=== PATIENT | female | born 1980 | race Caucasian/White ===

== ENCOUNTER 2022-03-28 10:31 | Emergency (ER) | payer BC ==
[~2022-03-28] VITALS: Ht 149.9 cm; Wt 52.2 kg
[2022-03-28 11:13] VITALS: BP_SYST 132
[2022-03-28 11:54] LABS: BASOPHILS # (AUTO) 0.1 K/uL (0.0-0.2); BASOPHILS % (AUTO) 0.3 % (0.0-2.0); EOSINOPHILS % (AUTO) 0.1 % (0.0-4.0); HEMATOCRIT 42.4 % (36-48); LYMPHOCYTES # (AUTO) 1.1 K/uL (1.0-5.5); LYMPHOCYTES % (AUTO) 4.6 % (20.5-51.5); MEAN CORPUSCULAR VOLUME 91 fL (79.0-98.0); MONOCYTES % (AUTO) 8.4 % (1.7-9.3); NEUTROPHILS # (AUTO) 20.7 K/uL (1.8-7.7); NEUTROPHILS % (AUTO) 86.6 % (40.0-70.0); PLATELET COUNT (AUTO) 312 K/uL (130-430); RED BLOOD CELL COUNT(AUTO) 4.68 MIL/uL (4.2-6.2); RED CELL DISTRIBUTION WIDTH 12.9 % (9.0-15.0); WHITE BLOOD COUNT (AUTO) 23.9 K/uL (4.8-10.8)
[2022-03-28 11:55] LABS: BILIRUBIN,URINE NEGATIVE (NEGATIVE); BLOOD, URINE 3+ (NEGATIVE); CLARITY/URINE SL CLOUDY (CLEAR); COLOR,URINE YELLOW (YELLOW); GLUCOSE,URINE NEGATIVE (NEGATIVE); KETONES,URINE 3+ (NEGATIVE); LEUKOCYTE ESTERASE ,URINE TRACE (NEGATIVE); NITRITE, URINE NEGATIVE (NEGATIVE); PROTEIN URINE 2+ (NEGATIVE)
--- NOTE | 2022-03-28 12:00 | NUR ---
Patient triaged and placed in waiting room. VSS and patient appears in no acute distress at this time. Accompanied by , awaiting available bed, and MD notified of need for MSE.
--- NOTE | 2022-03-28 12:05 | NUR ---
Pt brought by self, A&Ox4,pt presents to ER with upper abdominal pain and nausea x 5 days, pt afebrile, skin pink and warm, cap refill <3, will cont to monitor.
[2022-03-28 12:19] LABS: BACTERIA,URINE FEW /HPF (None Seen); MUCUS,URINE 1+ /LPF (None Seen)
[2022-03-28 12:40] LABS: CALCIUM 8.4 mg/dL (8.4-11.0); CREATININE 0.82 mg/dL (0.55-1.30)
--- NOTE | 2022-03-28 12:45 | NUR ---
Dr Vail evaluating patient at bedside
[2022-03-28 12:55] LABS: TOTAL BILIRUBIN 1.4 mg/dL (0.0-1.0)
--- NOTE | 2022-03-28 13:21 | NUR ---
Patient transported to radiology via AMBULATION, accompanied by STAFF.
--- NOTE | 2022-03-28 13:28 | NUR ---
Patient transported to radiology via AMBULATED, accompanied by RAD STAFF.
[2022-03-28] MEDS ORDERED: IBUP-1969 PO (14:22)
[2022-03-28] MEDS ORDERED: CLIN-142 PO (14:22)
[2022-03-28] MEDS ORDERED: HYDR-3917 PO (14:22)
[2022-03-28] MEDS ORDERED: cefTRIAXone 1 GM in LIDOCAINE 1%, 20 ML MDV 2.1 ML IM ONE ×4 (14:30)
--- NOTE | 2022-03-28 15:04 | NUR ---
Patient given written and verbal discharge instructions and verbalizes understanding. ER MD discussed with patient the results and treatment provided. Patient in stable condition. ID arm band removed. Rx of IBUPROFEN, Clindamycin, and Stanley given. Patient educated on pain management and to follow up with PMD. Opportunity for questions provided and answered. Medication side effect fact sheet provided.
[2022-03-28 15:06] VITALS: BP_SYST 132
[2022-03-28 17:02] LABS: C-REACTIVE PROTEIN QUANT 14.4 mg/dL (0-0.5)
== END 2022-03-28 15:06 | disposition home or self-care (01) ==
LOC: SED 10:31
DX: R10.32 Left lower quadrant pain (principal); R11.0 Nausea; Z79.899 Other long term (current) drug therapy
CPT/HCPCS: 99284; 74176; 80053; 81000; 82150; 83690; 85025; 86140; 87086; 36415; 76376; 81025; 96372; 83605; J0696; J2001